=== PATIENT | male | born 1990 | race Two or more races ===

== ENCOUNTER 2024-06-28 15:54 | Emergency (ER) | payer MEDICAID ==
[~2024-06-28] VITALS: Ht 177.8 cm; Wt 117.3 kg
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
[2024-06-28] MEDS: cloNIDine HCL 0.1 MG TAB PO ONE (17:04)
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
[2024-06-28] MEDS ORDERED: IBUP-1456 PO (17:40)
[2024-06-28] MEDS ORDERED: TRIA37.587 PO (17:40)
[2024-06-28] MEDS ORDERED: BACL10TA PO (17:40)
[2024-06-28 17:42] VITALS: BP 169/99; PULSE 95; RESP 18; TEMP 98; O2SAT 97
== END 2024-06-28 17:53 | disposition home or self-care (01) ==
LOC: ER 15:54
DX: S16.1XXA Strain of muscle, fascia and tendon at neck level, initial encounter (principal); S29.012A Strain of muscle and tendon of back wall of thorax, initial encounter; I10 Essential (primary) hypertension; Z79.1 Long term (current) use of non-steroidal anti-inflammatories (NSAID); Z79.899 Other long term (current) drug therapy; V43.52XA Car driver injured in collision with other type car in traffic accident, initial encounter; Y93.89 Activity, other specified; Y92.488 Other paved roadways as the place of occurrence of the external cause; Y99.8 Other external cause status
CPT/HCPCS: 70450; 72040; 72070

== ENCOUNTER 2024-09-23 13:01 | Emergency (ER) | payer MEDICAID ==
[~2024-09-23] VITALS: Ht 177.8 cm; Wt 118.4 kg
[~2024-09-23 13:01] MED LIST: BACL10TA PO; IBUP-1456 PO; TRIA37.587 PO
[2024-09-23] MEDS ORDERED: METH-1181 PO (15:13)
[2024-09-23] MEDS ORDERED: IBUP-1455 PO (15:13)
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
[2024-09-23 15:14] VITALS: BP 155/88; PULSE 94; RESP 14; TEMP 98.7; O2SAT 98
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
== END 2024-09-23 15:48 | disposition home or self-care (01) ==
LOC: ER 13:01
DX: M54.9 Dorsalgia, unspecified (principal); Z79.1 Long term (current) use of non-steroidal anti-inflammatories (NSAID); Z79.899 Other long term (current) drug therapy
CPT/HCPCS: 72100

== ENCOUNTER 2024-10-03 15:49 | Emergency (ER) | payer MEDICAID ==
[~2024-10-03] VITALS: Ht 177.8 cm; Wt 120.3 kg
[~2024-10-03 15:49] MED LIST changes: +IBUP-1455 PO; +METH-1181 PO
[2024-10-03] MEDS ORDERED: AZIT500T PO (16:13)
--- NOTE | 2024-10-03 16:18 | ED.PDOC ---
HPI Comments 34y M who presents to the ED for chief complaint of elevated blood pressure. Pt states he has been having cough and congestion for the past few days. Pt states he went to urgent care and states he was referred to the ED for elevated blood pressure. Pt in the ED, has noted elevated blood pressure of 170/95 with all other vitals in normal range. Pt otherwise denies headache, dizziness, or any associated symptoms. Pt has no prior history of HTN. Pt denies any sick contacts. Pt denies any other symptoms at this time. P Chief Complaint: High Blood Pressure Time Seen by MD: 16:16 Primary Care Provider: NONE Reviewed Notes: Nurses Notes, Medications, Allergies (No allergies to medications) Allergies: Coded Allergies: NO KNOWN ALLERGIES (Unverified , 09/23/24) Home Meds Active Scripts Azithromycin (Zithromax) 500 Mg Tab, 1 TAB PO DAILY, #5 TAB Prov:CHRISTIANO PINO MD 10/03/24 Ibuprofen Micronized (Ibuprofen) 800 Mg Tab, 800 MG PO TID for 10 Days, #30 TAB 0 Refills Prov:CHANDANA SIMPSON NP 09/23/24 Methocarbamol (Methocarbamol) 500 Mg Tab, 500 MG PO Q8HP PRN for 10 Days, #30 TAB 0 Refills Prov:CHANDANA SIMPSON NP 09/23/24 Hydrochlorothiazide W/Triamter (Dyazide 37.5/25MG) 1 Cap Cp, 1 CAP PO DAILY, #15 CAP Prov:KAVITA JUNIOR 06/28/24 Baclofen (Baclofen) 10 Mg Tab, 10 MG PO BID, #20 TAB Prov:KAVITA JUNIOR 06/28/24 Ibuprofen (Ibuprofen) 800 Mg Tab, 1 TAB PO TID, #30 TAB Prov:KAVITA JUNIOR 06/28/24 Information Source: Patient Mode of Arrival: Ambulatory Brought in by: self Severity: Moderate Timing: Days Duration: Since onset Prehospital treatment: None Onset: At Rest Cardiac Risk Factors: None PE Risk Factors: None History of: None Modifying Factors: Exertion Associated Signs and Symptoms: Other (cough, congestion) Past Medical History PAST MEDICAL HISTORY: Denies Surgical History: Denies all surgeries Family History Family History: Reviewed,noncontributory to illness Social History Smoker: Non-Smoker Alcohol: Denies ETOH Use Drugs: Denies Drug Use Lives In: Home Constitutional: denies: chills, diaphoresis, fatigue, fever, malaise, sweats, weakness, others EENTM: reports: nose congestion; denies: blurred vision, double vision, ear bleeding, ear discharge, ear drainage, ear pain, ear ringing, eye pain, eye redness, hearing loss, mouth pain, mouth swelling, nasal discharge, nose bleeding, nose pain, photophobia, tearing, throat pain, throat swelling, voice changes, others Respiratory: reports: cough; denies: hemoptysis, orthopnea, SOB at rest, shor tness of breath, SOB with excertion, stridor, wheezing, others Cardiovascular: denies: chest pain, dizzy spells, diaphoresis, Dyspnea on exertion, edema, irregular heart beat, left arm pain, lightheadedness, palpitations, PND, syncope, others Gastrointestinal: denies: abdomen distended, abdominal pain, blood streaked bowels, constipated, diarrhea, dysphagia, difficulty swallowing, hematemesis, melena, nausea, poor appetite, poor fluid intake, rectal bleeding, rectal pain, vomiting, others Genitourinary: denies: burning, dysuria, flank pain, frequency, hematuria, incontinence, penile discharge, penile sore, pain, testicle pain, testicle swelling, urgency, others Neurological: denies: dizziness, fainting, headache, left sided numbness, left sided weakness, numbness, paresthesia, pre-existing deficit, right sided numbness, right sided weakness, seizure, speech problems, tingling, tremors, weakness, others Musculoskeletal: denies: back pain, gout, joint pain, joint swelling, muscle pain, muscle stiffness, neck pain, others Integumetry: denies: bruises, change in color, change in hair/nails, dryness, laceration, lesions, lumps, rash, wounds, others Allergic/Immunocompromised: denies: Difficulty Healing, Frequent Infections, Hives, Itching, others Hematologic/Lymphatic: denies: anemia, blood clots, easy bleeding, easy bruising, swollen glands, others Endocrine: denies: excessive hunger, excessive sweating, excessive thirst, excessive urination, flushing, intolerance to cold, intolerance to heat, unexplained weight gain, unexplained weight loss, others Psychiatric: denies: anxiety, bipolar disorder, depression, hopeless, panic disorder, schizophrenia, sleepless, suicidal, others All Other Systems: Reviewed and Negative Physical Exam General Appearance: No Apparent Distress HEENT: Normal ENT Inspection, Pharynx Normal, TMs Normal Neck: Full Range of Motion, Non-Tender, Normal, Normal Inspection Respiratory: Chest Non-Tender, Lungs Clear, No Accessory Muscle Use, No Respiratory Distress, Normal Breath Sounds Cardiovascular: No Edema, No JVD, No Murmur, No Gallop, Normal Peripheral Pulses, Regular Rate/Rhythm Breast Exam: Deferred Gastrointestinal: No Organomegaly, Non Tender, No Pulsatile Mass, Normal Bowel Sounds, Soft Genitalia: Deferred Pelvic: Deferred Rectal: Deferred Extremities: No calf tenderness, Normal capillary refill, Normal inspection, Normal range of motion, Non-tender, No pedal edema Musculoskeletal : Apperance: Normal Neurologic: 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 Was a procedure done?: No CP Differential Dx Differential Diagnosis: N/A Differential Diagnosis: HTN Essential, HTN Accelerated, HTN Encephalopathy Differential Diagnosis: Chest Wall Pain X-Ray, Labs, Meds, VS Vital Signs Date Time Temp Pulse Resp B/P (MAP) Pulse Ox O2 Delivery O2 Flow Rate FiO2 10/03/24 16:08 98.8 100 18 187/118 (141) 95 The patient's is being discharged at this time The patient was given a prescription of Zithromax The patient will return to the emergency department's condition worsens The patient was given clonidine 0.2 mg by mouth for the elevated blood pressure The patient was told to follow up with the primary care doctor to manage his hypertension The patient will continue taking his medications Images Reviewed?: Images reviewed and evaluated by me Time of 1ST Reevaluation: 16:45 Reevaluation 1ST: Unchanged Patient Education/Counseling: Diagnosis, Treatment, Prognosis, Need For Follow Up Family Education/Counseling: No Family Present Departure 1 Departure Time of Disposition: 16:24 Impression: Primary Impression: Acute pharyngitis Qualified Codes: J02.9 - Acute pharyngitis, unspecified Additional Impression: Hypertensive urgency Disposition: 01 HOME / SELF CARE / HOMELESS Condition: Fair e-Prescriptions Azithromycin (Zithromax) 500 Mg Tab 1 TAB PO DAILY, #5 TAB Prov: CHRISTIANO PINO MD 10/03/24 Discharged With: Self Critical Care Note Critical Care Time?: No Stability Stability form required: No Heart Score Heart Score: Heart Score Response (Comments) Value History Slightly Suspicious 0 EKG Normal 0 Age <45 0 Risk Factors No known risk factors 0 Troponin N/A 0 Total 0 I personally scribed for CHRISTIANO PINO MD ([email or web address]) on 10/03/24 at 16:18. Electronically submitted by Maritza Macias ([email or web address]). CHRISTIANO PINO MD Oct 03, 2024 16:18
[2024-10-03] MEDS: cloNIDine HCL 0.1 MG TAB PO ONE (16:23)
[2024-10-03 17:34] VITALS: BP 172/105; PULSE 94; RESP 20; TEMP 97.8; O2SAT 98
== END 2024-10-03 18:37 | disposition home or self-care (01) ==
LOC: ER 15:49
DX: I16.0 Hypertensive urgency (principal); J02.9 Acute pharyngitis, unspecified; Z79.899 Other long term (current) drug therapy; Z79.1 Long term (current) use of non-steroidal anti-inflammatories (NSAID)

== ENCOUNTER 2024-12-31 15:33 | Emergency (ER) | payer SELFPAY ==
[~2024-12-31] VITALS: Ht 177.8 cm; Wt 119.9 kg
[~2024-12-31 15:33] MED LIST changes: +AZIT500T PO
[2024-12-31] MEDS: methylPREDNISolone SOD SUCC 125 MG/2 ML VL IM ONE (16:27)
[2024-12-31] MEDS: KETOROLAC TROMETH 60MG/2ML VIAL IM ONE (16:29)
[2024-12-31] MEDS ORDERED: IBUP-1455 PO (16:38)
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
[2024-12-31 16:50] VITALS: BP 142/89; PULSE 78; RESP 16; TEMP 98.7; O2SAT 97
== END 2024-12-31 16:52 | disposition home or self-care (01) ==
LOC: ER 15:33
DX: M54.2 Cervicalgia (principal); Z79.899 Other long term (current) drug therapy
CPT/HCPCS: 96372; 99284; J1885; J2919

== ENCOUNTER 2025-07-21 09:52 | Outpatient (CLI) | payer MEDICAID ==
[2025-07-21 10:43] LABS: Hematocrit 45.1 % (41.0-53.0); Hemoglobin 15.5 g/dL (13.5-17.5); Mean Corpuscular Hemoglobin 31.2 pg (28.0-32.0); Mean Corpuscular Volume 90.4 fL (80.0-100.0); Nucleated Red Blood Cells % 0.0 %
[2025-07-21 10:59] LABS: Alanine Aminotransferase 34 U/L (7-40); Alkaline Phosphatase 61 U/L (46-116); Anion Gap 11 (5-15); BUN/Creatinine Ratio 10.3 (10.0-20.0); Bilirubin, Total 0.9 mg/dL (0.2-1.0); Blood Urea Nitrogen 9 mg/dL (9-23); Calcium 10.1 mg/dL (8.7-10.4); Carbon Dioxide 25 mmol/L (20-31); Chloride 103 mmol/L (98-107); Glucose 87 mg/dL (74-106); HDL Cholesterol 44 mg/dL (40-59); Potassium 3.7 mmol/L (3.5-5.1); Sodium 139 mmol/L (136-145); Total Protein 8.0 g/dL (5.7-8.2); Urine Protein, UAD TRACE (Negative)
[2025-07-21 11:01] LABS: Albumin 5.1 g/dL (3.2-4.8); Cholesterol 227 mg/dL (< 200); Triglycerides 229 mg/dL (< 150)
== END 2025-07-21 17:00 | disposition home or self-care (01) ==
LOC: LAB 09:52
DX: E55.9 Vitamin D deficiency, unspecified (principal); Z00.01 Encounter for general adult medical examination with abnormal findings; Z01.89 Encounter for other specified special examinations
CPT/HCPCS: 36415; 80053; 80061; 81001; 82306; 83036; 84443; 85025